=== PATIENT | male | born 2000 | race Native Hawaiian/Other Pacific Islander ===

== ENCOUNTER 2023-01-06 12:39 | Emergency (ER) | payer MEDICAID ==
[~2023-01-06] VITALS: Ht 175.3 cm; Wt 68.0 kg
[2023-01-06 12:49] VITALS: BP_SYST 116
[2023-01-06] MEDS ORDERED: IBUPROFEN 800 MG TABLET PO ONE (13:00)
[2023-01-06] MEDS ORDERED: IBUP-1971 PO (13:05)
[2023-01-06 13:19] VITALS: BP_SYST 116
== END 2023-01-06 13:19 | disposition home or self-care (01) ==
LOC: SED 12:57
DX: S43.402A Unspecified sprain of left shoulder joint, initial encounter (principal); Z79.899 Other long term (current) drug therapy; W21.05XA Struck by basketball, initial encounter; Y93.67 Activity, basketball; Y92.89 Other specified places as the place of occurrence of the external cause; Y99.8 Other external cause status
CPT/HCPCS: 73030; 99283